=== PATIENT | female | born 1975 | race Caucasian/White ===

== ENCOUNTER 2017-12-24 08:31 | Day surgery (SDC) | payer OTHER ==
[~2017-12-24] VITALS: Ht 165.1 cm; Wt 86.0 kg
[2017-12-24] MEDS ORDERED: NEXIUM 40MG40 MG PO (09:24)
[2017-12-24] MEDS ORDERED: AMBIEN 10MG10 MG PO (09:25)
[2017-12-24] MEDS ORDERED: ULTRAM 50MG TAB50 MG PO (09:25)
[2017-12-24 09:26] VITALS: BP 118/72; PULSE 67; TEMP 97.6
[2017-12-24 11:52] VITALS: BP 101/68; PULSE 61; TEMP 98.1
[2017-12-24 12:07] VITALS: BP 101/62; PULSE 62
[2017-12-24 12:20] VITALS: BP 106/67; PULSE 61
[2017-12-24 12:35] VITALS: BP 105/74; PULSE 58
[2017-12-24 12:50] VITALS: BP 106/63; PULSE 60
[2017-12-24] MEDS ORDERED: NORCO 325 MG-7.1 TAB PO (13:06)
== END 2017-12-24 13:15 | disposition home or self-care (01) ==
LOC: SDCO 08:31
DX: M77.11 Lateral epicondylitis, right elbow (principal); K21.9 Gastro-esophageal reflux disease without esophagitis; F17.210 Nicotine dependence, cigarettes, uncomplicated; Z88.0 Allergy status to penicillin; Z82.49 Family history of ischemic heart disease and other diseases of the circulatory system
CPT/HCPCS: J0690; J1100; J1170; J1885; J2175; J2405; J2704; J3010; J7120